=== PATIENT | female | born 1975 | race Caucasian/White ===

== ENCOUNTER 2020-03-28 20:43 | Emergency (ER) | payer OTHER ==
[2020-03-28] MEDS ORDERED: levETIRAcetam 1,000 MG in Sodium Chloride 0.9% 100 ML IV ONE ×2 (20:45→22:09)
[2020-03-28] MEDS ORDERED: LORazepam 2 MG/ML SDV ONE (20:56)
[2020-03-28] MEDS ORDERED: LORazepam 2 MG/ML SDV IVPUSH ONE (20:57)
--- NOTE | 2020-03-28 21:23 | EDM.PDOC ---
ED HPI GENERAL MEDICAL PROBLEM - General Chief Complaint: Neuro Symptoms/Deficits Stated Complaint: [facility] Time Seen by Provider: 03/28/20 21:16 Source of Information: Reports: EMS, Family - History of Present Illness INITIAL COMMENTS - FREE TEXT/NARRATIVE: 44-year-old female presents the emergency room brought in by EMS with a history of having 2 seizures prior to getting here. Patient has no prior history of seizure disorders. Shortly after arrival here the patient had a third seizure this 1 lasted patient had a seizure at home lasted about 45 seconds this was described as a generalized grand mal seizure. Roughly 45 seconds the patient received some Ativan in route from EMS during the seizure. She received 2 mg of Ativan and was started on Keppra 1000 mg IV. The seizure I witnessed was a generalized grand mal seizure. Patient is postictal at this time. The patient did not have loss of bowel or bladder control during the first 2 seizures. Patient has no prior history of seizure disorder patient has a history of pretty severe migraines that start with her periods and today she had a pretty rough migraine as it was the beginning of her period. Again she has no prior history of seizures there is no family history of seizures. - Related Data Allergies Allergy/AdvReac Type Severity Reaction Status Date / Time azithromycin Allergy Cannot Verified 03/28/20 20:53 Remember sumatriptan [From Imitrex] Allergy Cannot Verified 03/28/20 20:53 Remember ED ROS GENERAL - Review of Systems Review Of Systems: See Below (Patient is postictal) ED EXAM, NEURO - Physical Exam Exam: See Below Exam Limited By: No Limitations General Appearance: Other (Postictal) Eye Exam: Bilateral Eye: EOMI, Normal Inspection Ears: Normal External Exam, Normal Canal, Hearing Grossly Normal, Normal TMs Nose: Normal Inspection, Normal Mucosa, No Blood Throat/Mouth: Normal Inspection, Normal Lips, Normal Gums, Normal Oropharynx, Normal Voice, No Airway Compromise Head Exam: Atraumatic, Normocephalic Neck: Normal Inspection, Supple, Non-Tender, Full Range of Motion Respiratory/Chest: No Respiratory Distress, Lungs Clear, Normal Breath Sounds, No Accessory Muscle Use, Chest Non-Tender Cardiovascular: Normal Peripheral Pulses, Regular Rate, Rhythm, No Edema, No Gallop, No JVD, No Murmur, No Rub GI/Abdominal: Normal Bowel Sounds, Soft, Non-Tender, No Organomegaly, No Distention, No Abnormal Bruit, No Mass (Female) Exam: Normal External Exam, Normal Speculum Exam, Normal Bimanual Exam Rectal (Female) Exam: Normal Rectal Tone Neurological: Other (Postictal) Back Exam: Normal Inspection Extremities: Normal Inspection, No Pedal Edema Skin Exam: Warm, Dry, Intact Course - Vital Signs Last Recorded V/S: Last Vital Signs Temp 36.6 C 03/28/20 20:46 Pulse 104 H 03/28/20 20:46 Resp 18 03/28/20 20:46 BP 118/75 03/28/20 20:46 Pulse Ox 96 03/28/20 21:20 - Orders/Labs/Meds Orders: Active Orders 24 hr Category Date Time Status ABG [RT Arterial Blood Gases, ABG] [RC] Click to Edit Care 03/28/20 21:45 Active EKG Documentation Completion [RC] STAT Care 03/28/20 20:46 Active Insert Urinary Catheter [OM.PC] Stat Care 03/28/20 21:20 Ordered Urinary Catheter Assessment [RC] ASDIRECTED Care 03/28/20 21:38 Active Chest 1V Frontal [CR] Stat Exams 03/28/20 20:46 Taken Head wo Cont [CT] Stat Exams 03/28/20 20:46 Taken Lactated Ringers [Ringers, Lactated] 1,000 ml Med 03/28/20 22:45 Active IV ASDIRECTED Medication Orders Lactated Ringer's (Ringers, Lactated) 1,000 mls @ 150 mls/hr IV ASDIRECTED JAMES Labs: Laboratory Tests 03/28/20 03/28/20 03/28/20 Range/Units 21:07 21:07 21:07 WBC 19.43 H (3.98-10.04) K/mm3 RBC 4.75 (3.98-5.22) M/mm3 Hgb 13.4 (11.2-15.7) gm/dl Hct 42.4 (34.1-44.9) % MCV 89.3 D (79.4-94.8) fl MCH 28.2 (25.6-32.2) pg MCHC 31.6 L (32.2-35.5) g/dl RDW Std Deviation 46.4 H (36.4-46.3) fL Plt Count 384 H D (182-369) K/mm3 MPV 10.9 (9.4-12.3) fl Neut % (Auto) 55.5 (34.0-71.1) % Lymph % (Auto) 33.0 (19.3-51.7) % Parke % (Auto) 10.0 (4.7-12.5) % Eos % (Auto) 0.8 (0.7-5.8) Baso % (Auto) 0.3 (0.1-1.2) % Neut # (Auto) 10.78 H (1.56-6.13) K/mm3 Lymph # (Auto) 6.41 H (1.18-3.74) K/mm3 Parke # (Auto) 1.95 H (0.24-0.36) K/mm3 Eos # (Auto) 0.16 (0.04-0.36) K/mm3 Baso # (Auto) 0.06 (0.01-0.08) K/mm3 Manual Slide Review Abnormal smear PT 11.0 (9.7-12.0) SECONDS INR 1.03 APTT 21.5 L (21.7-31.4) SECONDS Puncture Site ABG pH (7.35-7.45) ABG pCO2 (35.0-45.0) mmHg ABG pO2 (80.0-100.0) mmHg ABG HCO3 (22.0-26.0) meq/L ABG O2 Saturation (96.0-97.0) % ABG Base Excess (-2-2.0) Jm Test A-a Gradient mmHg O2 Delivery Device Oxygen Flow Rate FiO2 (21.00-100.00) % Sodium 145 (136-145) mEq/L Potassium 3.4 L (3.5-5.1) mEq/L Chloride 105 (98-107) mEq/L Carbon Dioxide 14 L D (21-32) mEq/L Anion Gap 29.4 H (5-15) BUN 25 H (7-18) mg/dL Creatinine 1.3 H (0.55-1.02) mg/dL Est Cr Clr Drug Dosing 47.19 mL/min Estimated GFR (MDRD) 44 (>60) mL/min BUN/Creatinine Ratio 19.2 H (14-18) Glucose 111 H (74-106) mg/dL Lactic Acid (0.4-2.0) mmol/L Calcium 9.0 (8.5-10.1) mg/dL Total Bilirubin 0.3 (0.2-1.0) mg/dL AST 16 (15-37) U/L ALT 21 (14-59) U/L Alkaline Phosphatase 127 H (46-116) U/L Total Protein 7.5 (6.4-8.2) g/dl Albumin 3.9 (3.4-5.0) g/dl Globulin 3.6 gm/dL Albumin/Globulin Ratio 1.1 (1-2) Urine Color (Yellow) Urine Appearance (Clear) Urine pH (5.0-8.0) Ur Specific Sayre (1.005-1.030) Urine Protein (Negative) Urine Glucose (UA) (Negative) Urine Ketones (Negative) Urine Occult Blood (Negative) Urine Nitrite (Negative) Urine Bilirubin (Negative) Urine Urobilinogen (0.2-1.0) Ur Leukocyte Esterase (Negative) Urine RBC (0-5) /hpf Urine WBC (0-5) /hpf Ur Squamous Epith Cells (0-5) /hpf Urine Bacteria (FEW) /hpf Urine Mucus (FEW) /hpf Urine HCG, Qual (NEGATIVE) Urine Opiates Screen (HWUNZD=162) Ur Buprenorphine Scrn (CUTOFF=10) Ur Oxycodone Screen (MGJ3WI=981) Urine Methadone Screen (ODIGZD=156) Ur Propoxyphene Screen (JNGOVT=208) Ur Barbiturates Screen (XRDSRJ=873) Ur Tricyclics Screen (YALATG=146) Ur Phencyclidine Scrn (CUTOFF=25) Ur Amphetamine Screen (MNLHPY=779) U Methamphetamines Scrn (DOTTQN=192) U Benzodiazepines Scrn (CVXGSN=235) U Cocaine Metab Screen (AOULOY=795) U Marijuana (THC) Screen (CUTOFF=50) Ethyl Alcohol (0.00) gm% SARS-CoV-2 RNA (NATALEE) (NEGATIVE) 03/28/20 03/28/20 03/28/20 Range/Units 21:07 21:07 21:25 WBC (3.98-10.04) K/mm3 RBC (3.98-5.22) M/mm3 Hgb (11.2-15.7) gm/dl Hct (34.1-44.9) % MCV (79.4-94.8) fl MCH (25.6-32.2) pg MCHC (32.2-35.5) g/dl RDW Std Deviation (36.4-46.3) fL Plt Count (182-369) K/mm3 MPV (9.4-12.3) fl Neut % (Auto) (34.0-71.1) % Lymph % (Auto) (19.3-51.7) % Parke % (Auto) (4.7-12.5) % Eos % (Auto) (0.7-5.8) Baso % (Auto) (0.1-1.2) % Neut # (Auto) (1.56-6.13) K/mm3 Lymph # (Auto) (1.18-3.74) K/mm3 Parke # (Auto) (0.24-0.36) K/mm3 Eos # (Auto) (0.04-0.36) K/mm3 Baso # (Auto) (0.01-0.08) K/mm3 Manual Slide Review PT (9.7-12.0) SECONDS INR APTT (21.7-31.4) SECONDS Puncture Site ABG pH (7.35-7.45) ABG pCO2 (35.0-45.0) mmHg ABG pO2 (80.0-100.0) mmHg ABG HCO3 (22.0-26.0) meq/L ABG O2 Saturation (96.0-97.0) % ABG Base Excess (-2-2.0) Jm Test A-a Gradient mmHg O2 Delivery Device Oxygen Flow Rate FiO2 (21.00-100.00) % Sodium (136-145) mEq/L Potassium (3.5-5.1) mEq/L Chloride (98-107) mEq/L Carbon Dioxide (21-32) mEq/L Anion Gap (5-15) BUN (7-18) mg/dL Creatinine (0.55-1.02) mg/dL Est Cr Clr Drug Dosing mL/min Estimated GFR (MDRD) (>60) mL/min BUN/Creatinine Ratio (14-18) Glucose (74-106) mg/dL Lactic Acid 14.9 H* (0.4-2.0) mmol/L Calcium (8.5-10.1) mg/dL Total Bilirubin (0.2-1.0) mg/dL AST (15-37) U/L ALT (14-59) U/L Alkaline Phosphatase (46-116) U/L Total Protein (6.4-8.2) g/dl Albumin (3.4-5.0) g/dl Globulin gm/dL Albumin/Globulin Ratio (1-2) Urine Color Light yellow (Yellow) Urine Appearance Clear (Clear) Urine pH 5.0 (5.0-8.0) Ur Specific Sayre > or = 1.030 (1.005-1.030) Urine Protein Trace H (Negative) Urine Glucose (UA) Negative (Negative) Urine Ketones Negative (Negative) Urine Occult Blood Trace-lysed H (Negative) Urine Nitrite Negative (Negative) Urine Bilirubin Negative (Negative) Urine Urobilinogen 0.2 (0.2-1.0) Ur Leukocyte Esterase Negative (Negative) Urine RBC 0-5 (0-5) /hpf Urine WBC Not seen (0-5) /hpf Ur Squamous Epith Cells 0-5 (0-5) /hpf Urine Bacteria Few (FEW) /hpf Urine Mucus Rare (FEW) /hpf Urine HCG, Qual (NEGATIVE) Urine Opiates Screen (FRDVZV=268) Ur Buprenorphine Scrn (CUTOFF=10) Ur Oxycodone Screen (SZE8YX=807) Urine Methadone Screen (OMYLUV=153) Ur Propoxyphene Screen (BMJUSS=261) Ur Barbiturates Screen (KIMBAH=932) Ur Tricyclics Screen (NXRGJV=658) Ur Phencyclidine Scrn (CUTOFF=25) Ur Amphetamine Screen (JNAVNS=948) U Methamphetamines Scrn (NXKJEX=851) U Benzodiazepines Scrn (DOTQGP=741) U Cocaine Metab Screen (VHIXVI=414) U Marijuana (THC) Screen (CUTOFF=50) Ethyl Alcohol 0.00 (0.00) gm% SARS-CoV-2 RNA (NATALEE) (NEGATIVE) 03/28/20 03/28/20 03/28/20 Range/Units 21:25 21:25 21:46 WBC (3.98-10.04) K/mm3 RBC (3.98-5.22) M/mm3 Hgb (11.2-15.7) gm/dl Hct (34.1-44.9) % MCV (79.4-94.8) fl MCH (25.6-32.2) pg MCHC (32.2-35.5) g/dl RDW Std Deviation (36.4-46.3) fL Plt Count (182-369) K/mm3 MPV (9.4-12.3) fl Neut % (Auto) (34.0-71.1) % Lymph % (Auto) (19.3-51.7) % Parke % (Auto) (4.7-12.5) % Eos % (Auto) (0.7-5.8) Baso % (Auto) (0.1-1.2) % Neut # (Auto) (1.56-6.13) K/mm3 Lymph # (Auto) (1.18-3.74) K/mm3 Parke # (Auto) (0.24-0.36) K/mm3 Eos # (Auto) (0.04-0.36) K/mm3 Baso # (Auto) (0.01-0.08) K/mm3 Manual Slide Review PT (9.7-12.0) SECONDS INR APTT (21.7-31.4) SECONDS Puncture Site ABG pH (7.35-7.45) ABG pCO2 (35.0-45.0) mmHg ABG pO2 (80.0-100.0) mmHg ABG HCO3 (22.0-26.0) meq/L ABG O2 Saturation (96.0-97.0) % ABG Base Excess (-2-2.0) Jm Test A-a Gradient mmHg O2 Delivery Device Oxygen Flow Rate FiO2 (21.00-100.00) % Sodium (136-145) mEq/L Potassium (3.5-5.1) mEq/L Chloride (98-107) mEq/L Carbon Dioxide (21-32) mEq/L Anion Gap (5-15) BUN (7-18) mg/dL Creatinine (0.55-1.02) mg/dL Est Cr Clr Drug Dosing mL/min Estimated GFR (MDRD) (>60) mL/min BUN/Creatinine Ratio (14-18) Glucose (74-106) mg/dL Lactic Acid (0.4-2.0) mmol/L Calcium (8.5-10.1) mg/dL Total Bilirubin (0.2-1.0) mg/dL AST (15-37) U/L ALT (14-59) U/L Alkaline Phosphatase (46-116) U/L Total Protein (6.4-8.2) g/dl Albumin (3.4-5.0) g/dl Globulin gm/dL Albumin/Globulin Ratio (1-2) Urine Color (Yellow) Urine Appearance (Clear) Urine pH (5.0-8.0) Ur Specific Sayre (1.005-1.030) Urine Protein (Negative) Urine Glucose (UA) (Negative) Urine Ketones (Negative) Urine Occult Blood (Negative) Urine Nitrite (Negative) Urine Bilirubin (Negative) Urine Urobilinogen (0.2-1.0) Ur Leukocyte Esterase (Negative) Urine RBC (0-5) /hpf Urine WBC (0-5) /hpf Ur Squamous Epith Cells (0-5) /hpf Urine Bacteria (FEW) /hpf Urine Mucus (FEW) /hpf Urine HCG, Qual Negative (NEGATIVE) Urine Opiates Screen Negative (JLQRLE=975) Ur Buprenorphine Scrn Negative (CUTOFF=10) Ur Oxycodone Screen Negative (FDG9ER=967) Urine Methadone Screen Negative (ZLRWMY=108) Ur Propoxyphene Screen Negative (FAGYCF=432) Ur Barbiturates Screen Negative (WRFGYP=093) Ur Tricyclics Screen Negative (RRPMJA=412) Ur Phencyclidine Scrn Negative (CUTOFF=25) Ur Amphetamine Screen Negative (JKMNBC=690) U Methamphetamines Scrn Negative (DQOOCP=067) U Benzodiazepines Scrn Presumptive positive H (ZASSKT=870) U Cocaine Metab Screen Negative (DNPMCF=322) U Marijuana (THC) Screen Negative (CUTOFF=50) Ethyl Alcohol (0.00) gm% SARS-CoV-2 RNA (NATALEE) Negative (NEGATIVE) 03/28/20 Range/Units 22:23 WBC (3.98-10.04) K/mm3 RBC (3.98-5.22) M/mm3 Hgb (11.2-15.7) gm/dl Hct (34.1-44.9) % MCV (79.4-94.8) fl MCH (25.6-32.2) pg MCHC (32.2-35.5) g/dl RDW Std Deviation (36.4-46.3) fL Plt Count (182-369) K/mm3 MPV (9.4-12.3) fl Neut % (Auto) (34.0-71.1) % Lymph % (Auto) (19.3-51.7) % Parke % (Auto) (4.7-12.5) % Eos % (Auto) (0.7-5.8) Baso % (Auto) (0.1-1.2) % Neut # (Auto) (1.56-6.13) K/mm3 Lymph # (Auto) (1.18-3.74) K/mm3 Parke # (Auto) (0.24-0.36) K/mm3 Eos # (Auto) (0.04-0.36) K/mm3 Baso # (Auto) (0.01-0.08) K/mm3 Manual Slide Review PT (9.7-12.0) SECONDS INR APTT (21.7-31.4) SECONDS Puncture Site Lt radial ABG pH 7.39 (7.35-7.45) ABG pCO2 37.0 (35.0-45.0) mmHg ABG pO2 87.0 (80.0-100.0) mmHg ABG HCO3 22.1 (22.0-26.0) meq/L ABG O2 Saturation 95.8 L (96.0-97.0) % ABG Base Excess -1.8 (-2-2.0) Jm Test Positive A-a Gradient 38 mmHg O2 Delivery Device Nasal cannula Oxygen Flow Rate 1.0 FiO2 24.00 (21.00-100.00) % Sodium (136-145) mEq/L Potassium (3.5-5.1) mEq/L Chloride (98-107) mEq/L Carbon Dioxide (21-32) mEq/L Anion Gap (5-15) BUN (7-18) mg/dL Creatinine (0.55-1.02) mg/dL Est Cr Clr Drug Dosing mL/min Estimated GFR (MDRD) (>60) mL/min BUN/Creatinine Ratio (14-18) Glucose (74-106) mg/dL Lactic Acid (0.4-2.0) mmol/L Calcium (8.5-10.1) mg/dL Total Bilirubin (0.2-1.0) mg/dL AST (15-37) U/L ALT (14-59) U/L Alkaline Phosphatase (46-116) U/L Total Protein (6.4-8.2) g/dl Albumin (3.4-5.0) g/dl Globulin gm/dL Albumin/Globulin Ratio (1-2) Urine Color (Yellow) Urine Appearance (Clear) Urine pH (5.0-8.0) Ur Specific Sayre (1.005-1.030) Urine Protein (Negative) Urine Glucose (UA) (Negative) Urine Ketones (Negative) Urine Occult Blood (Negative) Urine Nitrite (Negative) Urine Bilirubin (Negative) Urine Urobilinogen (0.2-1.0) Ur Leukocyte Esterase (Negative) Urine RBC (0-5) /hpf Urine WBC (0-5) /hpf Ur Squamous Epith Cells (0-5) /hpf Urine Bacteria (FEW) /hpf Urine Mucus (FEW) /hpf Urine HCG, Qual (NEGATIVE) Urine Opiates Screen (UOMWDP=177) Ur Buprenorphine Scrn (CUTOFF=10) Ur Oxycodone Screen (DNH3UU=173) Urine Methadone Screen (XXFOCP=418) Ur Propoxyphene Screen (TQHAWL=994) Ur Barbiturates Screen (WAABRF=238) Ur Tricyclics Screen (ZILUUH=052) Ur Phencyclidine Scrn (CUTOFF=25) Ur Amphetamine Screen (HEEGEL=918) U Methamphetamines Scrn (UUSMQW=468) U Benzodiazepines Scrn (IGYZXM=248) U Cocaine Metab Screen (WYNVYL=865) U Marijuana (THC) Screen (CUTOFF=50) Ethyl Alcohol (0.00) gm% SARS-CoV-2 RNA (NATALEE) (NEGATIVE) Meds: Medications Generic Name Dose Route Start Last Admin Trade Name Freq PRN Reason Stop Dose Admin Lactated Ringer's 1,000 mls @ 150 mls/hr 03/28/20 22:45 Ringers, Lactated IV ASDIRECTED JAMES Discontinued Medications Generic Name Dose Route Start Last Admin Trade Name Freq PRN Reason Stop Dose Admin Dexamethasone 6 mg 03/28/20 22:16 Decadron IVPUSH 03/28/20 22:17 ONETIME ONE Levetiracetam 1,000 mg/ Sodium 110 mls @ 400 mls/hr 03/28/20 20:45 03/28/20 21:01 Chloride IV 03/28/20 20:59 400 mls/hr ONETIME ONE Administration Levetiracetam 1,000 mg/ Sodium 110 mls @ 400 mls/hr 03/28/20 22:09 03/28/20 22:20 Chloride IV 03/28/20 22:23 400 mls/hr ONETIME ONE Administration Lorazepam Confirm 03/28/20 20:56 03/28/20 21:00 Ativan Administered 03/28/20 20:57 Not Given Dose 4 mg .ROUTE .STK-MED ONE Lorazepam 2 mg 03/28/20 20:57 03/28/20 20:57 Ativan IVPUSH 03/28/20 20:58 2 mg ONETIME ONE Administration - Re-Assessments/Exams Free Text/Narrative Re-Assessment/Exam: 03/28/20 22:37 Patient had a seizure shortly after arrival here to the emergency department she was given 2 mg of IV Ativan followed up by a [facility]. Case was discussed with Dr. Beltrán he had neurologist who recommended transfer and we did discuss CT findings. Case was then discussed with neurosurgeon who wanted the patient sent to the neuro ICU. The case was then discussed with Dr. Smith soil analyst who accepts the patient. Departure - Departure Time of Disposition: 22:36 Disposition: DC/Tfer to Acute Hospital 02 Clinical Impression: New onset seizure, Status epilepticus, Brain tumor - Discharge Information Referrals: PCP,None [Primary Care Provider] - Forms: ED Department Discharge Sepsis Event Note (ED) - Evaluation Sepsis Screening Result: No Definite Risk - Focused Exam Vital Signs: Vital Signs Temp Pulse Resp BP Pulse Ox 03/28/20 21:20 96 03/28/20 20:56 86 L 03/28/20 20:46 36.6 C 104 H 18 118/75 94 L - My Orders Last 24 Hours: My Active Orders 03/28/20 20:46 EKG Documentation Completion [RC] STAT Chest 1V Frontal [CR] Stat Head wo Cont [CT] Stat 03/28/20 21:20 Insert Urinary Catheter [OM.PC] Stat 03/28/20 21:38 Urinary Catheter Assessment [RC] ASDIRECTED 03/28/20 21:45 ABG [RT Arterial Blood Gases, ABG] [RC] Click to Edit 03/28/20 22:45 Lactated Ringers [Ringers, Lactated] 1,000 ml IV ASDIRECTED - Assessment/Plan Last 24 Hours: My Active Orders 03/28/20 20:46 EKG Documentation Completion [RC] STAT Chest 1V Frontal [CR] Stat Head wo Cont [CT] Stat 03/28/20 21:20 Insert Urinary Catheter [OM.PC] Stat 03/28/20 21:38 Urinary Catheter Assessment [RC] ASDIRECTED 03/28/20 21:45 ABG [RT Arterial Blood Gases, ABG] [RC] Click to Edit 03/28/20 22:45 Lactated Ringers [Ringers, Lactated] 1,000 ml IV ASDIRECTED
[2020-03-28] MEDS ORDERED: Dexamethasone 10 MG/ML SDV IVPUSH ONE (22:16)
[2020-03-28] MEDS ORDERED: Lactated Ringers 1,000 ML IV SCH (22:45)
--- NOTE | 2020-03-29 08:32 | CT ---
Head CT Technique: Multiple axial sections through the brain were obtained. Intravenous contrast was not utilized. Reconstructed coronal and sagittal images were obtained. Comparison: No prior intracranial imaging is available. Findings: Vague low density is noted within the left frontal region. This shows some slight increased density centrally. This finding measures approximately 2.9 cm x 2.1 cm. This finding is suspicious for left frontal lobe mass. This abnormality causes very minimal midline shift of the anterior interhemispheric falx and slight effacement of the adjacent sulci over the convexities. No other abnormal parenchymal densities are seen. No evidence of intracranial hemorrhage is seen. No midline shift or mass-effect is seen. Bone window settings were reviewed. Visualized mastoid sinuses and visualized paranasal sinuses show nothing acute. No acute calvarial finding is appreciated. Impression: 1. Findings are highly suspicious for left frontal mass. Recommend MRI to further evaluate (without and with contrast). This abnormality causes minimal mass-effect. 2. No additional abnormality is identified on CT study of the brain. 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
--- NOTE | 2020-03-29 08:32 | CR ---
Chest: Portable view of the chest was obtained. Comparison: No prior chest imaging is available. Heart size and mediastinum are within normal limits for portable technique. Lungs are clear with no acute parenchymal change. No discrete bony abnormality is appreciated. Impression: 1. Nothing acute is seen on portable chest x-ray. Diagnostic code #1
== END 2020-03-28 22:57 ==
LOC: JD.ED 20:43
DX: G40.901 Epilepsy, unspecified, not intractable, with status epilepticus (principal); D49.6 Neoplasm of unspecified behavior of brain; Z20.822 Contact with and (suspected) exposure to COVID-19; Z88.1 Allergy status to other antibiotic agents; Z88.8 Allergy status to other drugs, medicaments and biological substances
CPT/HCPCS: 36415; 36600; 70450; 71045; 80053; 80179; 80306; 81001; 81025; 82803; 83605; 85025; 85610; 85730; 87635; 93005; 96365; 96366; 96375; 99285; J1100; J1953; J2060; J7120; U0002

== ENCOUNTER 2022-01-09 09:03 | Emergency (ER) | payer OTHER | END 2022-01-09 11:51 | disposition home or self-care (01) | LOC: JD.ED 09:03 | DX: N39.0 Urinary tract infection, site not specified (principal); Z88.0 Allergy status to penicillin; Z88.1 Allergy status to other antibiotic agents; Z88.8 Allergy status to other drugs, medicaments and biological substances | CPT/HCPCS: 99283 ==